=== PATIENT | male | born 1985 | race Two or more races ===

== ENCOUNTER 2018-07-29 17:18 | Emergency (ER) | payer OTHER ==
[~2018-07-29] VITALS: Ht 188 cm; Wt 74.8 kg
[2018-07-29 18:34] VITALS: BP 129/79
[2018-07-29 19:03] VITALS: BP 124/81
--- NOTE | 2018-07-30 00:25 | Emergency Room Report ---
History of Present Illness General Chief Complaint: Suicidal Source: Patient Present Illness Allergies: Coded Allergies: No Known Allergies (Unverified , 07/29/18) Nursing Documentation-[facility] Past Medical History: No History, Except For Physical Exam Vital Signs Date Time Temp Pulse Resp B/P (MAP) Pulse Ox O2 Delivery O2 Flow Rate FiO2 07/29/18 17:31 98.5 64 18 124/81 95 Room Air 98.4 Medical Decision Making Diagnostic Impression: Primary Impression: Behavioral disorder Last Vital Signs Date Time Temp Pulse Resp B/P (MAP) Pulse Ox O2 Delivery O2 Flow Rate FiO2 07/29/18 19:03 98.5 18 124/81 95 Room Air 98.4 07/29/18 18:34 85 Disposition: HOME, SELF-CARE Condition: Stable Referrals: [facility]ERR[facility] ([facility]P) [facility] + [facility] Psych ER - Peds ER - [facility] Intake Hotline - Patient Instructions: Depression, Adult, [id number] Antony Morgan MD Jul 30, 2018 00:25
== END 2018-07-29 19:03 | disposition home or self-care (01) ==
LOC: EMR 19:03
DX: F91.9 Conduct disorder, unspecified (principal)
CPT/HCPCS: 99282